=== PATIENT | female | born 1975 | race Caucasian/White ===

== ENCOUNTER 2021-08-03 23:49 | Emergency (ER) | payer SELFPAY ==
[2021-08-04 00:09] VITALS: BP 130/60; PULSE 95; RESP 20; TEMP 36.9; O2SAT 95; BMI 21.6
== END 2021-08-04 01:01 | disposition left against medical advice (07) ==
PROVIDERS: Emergency Provider Emergency Medicine
DX: M25.562 Pain in left knee (principal)
CPT/HCPCS: 99281